=== PATIENT | male | born 1980 | race Caucasian/White ===

== ENCOUNTER 2025-02-28 12:16 | Emergency (ER) | payer BC ==
[2025-02-28] MEDS ORDERED: Cephalexin 250 MG CAP ONE (12:37)
[2025-02-28] MEDS ORDERED: Sulfameth/Trimethoprim DS 800-160mg TAB ONE (12:38)
== END 2025-02-28 12:40 | disposition home or self-care (01) ==
LOC: BURERS 12:16
DX: H60.12 Cellulitis of left external ear (principal)
CPT/HCPCS: 99282